=== PATIENT | female | born 1965 | race Two or more races ===

== ENCOUNTER 2024-10-24 17:33 | Emergency (ER) | payer MEDICAID, OTHER ==
[~2024-10-24] VITALS: Ht 154.9 cm; Wt 91.9 kg
--- NOTE | 2024-10-24 18:16 | ED.PDOC ---
History of Present Illness HPI Comments 59 y/o morbidly obese Polish speaking F presents with daughter for c/c left- sided rib pain. 1x day history of pain after having a corner of a freezer door injured her left-sided rib area. Denies any nausea, vomiting, shortness of breath, or further associated symptoms. Chief Complaint: Abdominal Pain Time Seen by MD: 17:50 Reviewed Notes: Nurses Notes, Medications, Allergies Allergies: Coded Allergies: NO KNOWN ALLERGIES (Unverified , 10/24/24) Home Meds Active Scripts Hydrocodone-Acetaminophen (Hydrocodone Bitartrate/AC 5-325 mg) 1 Tab Tab, 1 TAB PO Q6HP PRN, #12 TAB Prov:GAYE GALINDO PAC 10/24/24 Ibuprofen Micronized (Ibuprofen) 800 Mg Tab, 800 MG PO Q8HP PRN, #20 TAB Prov:GAYE GALINDO PAC 10/24/24 Information Source: Patient, Relative (Child) Mode of Arrival: Ambulatory Severity: Moderate Timing: Days Duration: Since onset Prehospital treatment: None Past Medical History PAST MEDICAL HISTORY: Denies Surgical History: Denies all surgeries MEDICAL SERVICES ASSISTANT History: No Pertinent MEDICAL SERVICES ASSISTANT History Social History Smoker: Non-Smoker Alcohol: Denies ETOH Use Drugs: Denies Drug Use Lives In: Home Constitutional: denies: chills, diaphoresis, fatigue, fever, malaise, sweats, weakness, others EENTM: denies: blurred vision, double vision, ear bleeding, ear discharge, ear drainage, ear pain, ear ringing, eye pain, eye redness, hearing loss, mouth pain, mouth swelling, nasal discharge, nose bleeding, nose congestion, nose pain, photophobia, tearing, throat pain, throat swelling, voice changes, others Respiratory: denies: cough, hemoptysis, orthopnea, SOB at rest, shortness of breath, SOB with excertion, stridor, wheezing, others Cardiovascular: denies: chest pain, dizzy spells, diaphoresis, Dyspnea on exertion, edema, irregular heart beat, left arm pain, lightheadedness, palpitations, PND, syncope, others Gastrointestinal: denies: abdomen distended, abdominal pain, blood streaked bowels, constipated, diarrhea, dysphagia, difficulty swallowing, hematemesis, melena, nausea, poor appetite, poor fluid intake, rectal bleeding, rectal pain, vomiting, others Genitourinary: denies: abnormal vagina bleeding, burning, dyspareunia, dysuria, flank pain, frequency, hematuria, incontinence, pain, , vagina discharge, urgency, others Neurological: denies: dizziness, fainting, headache, left sided numbness, left sided weakness, numbness, paresthesia, pre-existing deficit, right sided numbn ess, right sided weakness, seizure, speech problems, tingling, tremors, weakness, others Musculoskeletal: reports: others (Left-sided rib pain); denies: back pain, gout, joint pain, joint swelling, muscle pain, muscle stiffness, neck pain Integumetry: denies: bruises, change in color, change in hair/nails, dryness, laceration, lesions, lumps, rash, wounds, others Allergic/Immunocompromised: denies: Difficulty Healing, Frequent Infections, Hives, Itching, others Hematologic/Lymphatic: denies: anemia, blood clots, easy bleeding, easy bruising, swollen glands, others Endocrine: denies: excessive hunger, excessive sweating, excessive thirst, excessive urination, flushing, intolerance to cold, intolerance to heat, unexplained weight gain, unexplained weight loss, others Psychiatric: denies: anxiety, bipolar disorder, depression, hopeless, panic disorder, schizophrenia, sleepless, suicidal, others All Other Systems: Reviewed and Negative (as per HPI) Physical Exam General Appearance: Moderate Distress (Due to left-sided rib pain concerns), Obese HEENT: Normal ENT Inspection, Pharynx Normal, TMs Normal Neck: Full Range of Motion, Non-Tender, Normal, Normal Inspection Respiratory: Chest Non-Tender (No crepitus.), Lungs Clear, No Accessory Muscle Use, No Respiratory Distress, Normal Breath Sounds, Other (Left-sided rib tenderness to palpation at the mid axillary line between ribs five and seven. No edema or ecchymosis.) Cardiovascular: No Edema, No JVD, No Murmur, No Gallop, Normal Peripheral Pulses, Regular Rate/Rhythm Breast Exam: Deferred Gastrointestinal: No Organomegaly, Non Tender, No Pulsatile Mass, Normal Bowel Sounds, Soft Genitalia: Deferred Pelvic: Deferred Rectal: Deferred Extremities: No calf tenderness, Normal capillary refill, Normal inspection, Normal range of motion, Non-tender, No pedal edema Neurologic: Alert, No Motor Deficits, Normal Affect, Normal Mood, No Sensory Deficits Cerebellar Function: NOT DONE Reflexes: NOT DONE Skin: Dry, Normal Color, Warm Lymphatic: No Adenopathy Was a procedure done? Was a procedure done?: No Differential Dx Considerations may include: musculoskeletal pain, fracture, contusions, among others X-Ray, Labs, Meds, VS Vital Signs Date Time Temp Pulse Resp B/P (MAP) Pulse Ox O2 Delivery O2 Flow Rate FiO2 10/24/24 18:25 98.1 75 16 103/69 (80) 93 98.1 10/24/24 18:25 75 16 93 Room Air 10/24/24 17:41 97.8 77 20 113/73 95 97.8 Lab Test 10/24/24 18:00 Range/Units Urine Color Pending Urine Clarity Pending Urine pH Pending Urine Specific [place] Pending Urine Protein Pending Urine Ketones Pending Urine Blood Pending Urine Nitrite Pending Urine Bilirubin Pending Urine Urobilinogen Pending Urine Leukocyte Esterase Pending Urine Glucose Pending Current Medications Medications (Trade) Dose Ordered Sig/Santi Route Start Time Stop Time Status Last Admin Ketorolac Tromethamine (Toradol Injection) 30 mg ONCE ONCE IM 10/24/24 18:00 10/24/24 18:01 DC 10/24/24 18:19 Acetaminophen/ Hydrocodone Bitart ([place] 10/325MG Tab) 1 tab ONCE ONCE PO 10/24/24 18:00 10/24/24 18:01 DC 10/24/24 18:18 X-Ray, Labs, Meds, VS Comment Syncopal event while in the ED were evaluated by me personally. Imaging studies were unremarkable for any acute fractures. Patient sustained a rib contusion. Advised pain medication as needed as well as ice therapy as tolerated. Time of 1ST Reevaluation: 21:24 Reevaluation 1ST: Improved Consultation: PCP Patient Education/Counseling: Diagnosis, Treatment, Need For Follow Up Family Education/Counseling: Diagnosis, Treatment, Need For Follow Up SEPSIS Sepsis Screen Date sepsis recognized/suspect: Oct 24, 2024 Time Sepsis recognized/suspect: 1743 Recent Procedure: No On Antibiotic Therapy: No Respiratory Rate >20: No Heart Rate >90: No Temp<36 C (96.8 F) or >38.3 C: No SBP <90 or MAP <65 mmHG: No New Acute Mental Status Change: No Is the patient on CPAP, BIPAP,: No Physician Orders L Rib X Ray (10/24/24 17:59) Urinalysis W/Out Microscopic (10/24/24 18:00) Vital Signs Date Time Temp Pulse Resp B/P (MAP) Pulse Ox O2 Delivery O2 Flow Rate FiO2 10/24/24 18:25 98.1 75 16 103/69 (80) 93 98.1 10/24/24 18:25 75 16 93 Room Air 10/24/24 17:41 97.8 77 20 113/73 95 97.8 Medications Medications Dose Ordered Sig/Santi Route Start Time Stop Time Status Last Admin Dose Admin Acetaminophen/ Hydrocodone Bitart 1 tab ONCE ONCE PO 10/24/24 18:00 10/24/24 18:01 DC 10/24/24 18:18 Ketorolac Tromethamine 30 mg ONCE ONCE IM 10/24/24 18:00 10/24/24 18:01 DC 10/24/24 18:19 Departure 1 Departure Time of Disposition: 21:25 Impression: Primary Impression: Rib contusion Disposition: HOME / SELF CARE / HOMELESS Condition: Stable Additional Instructions: Advised patient utilize pain medication as needed for symptomatic relief and ice therapy as tolerated. e-Prescriptions Hydrocodone-Acetaminophen (Hydrocodone Bitartrate/AC 5-325 mg) 1 Tab Tab 1 TAB PO Q6HP PRN, #12 TAB Prov: GAYE GALINDO PAC 10/24/24 Ibuprofen Micronized (Ibuprofen) 800 Mg Tab 800 MG PO Q8HP PRN, #20 TAB Prov: GAYE GALINDO PAC 10/24/24 Discharged With: Self, Relative Critical Care Note Critical Care Time?: No Stability Stability form required: No Heart Score Heart Score: Heart Score Response (Comments) Value History N/A 0 EKG N/A 0 Age N/A 0 Risk Factors N/A 0 Troponin N/A 0 Total 0 I personally scribed for GAYE GALINDO PAC ([email or web address]) on 10/24/24 at 18:16. Electronically submitted by Martin Allen ([email or web address]). I personally scribed for GAYE GALINDO PAC ([email or web address]) on 10/24/24 at 18:21. Electronically submitted by Martin Allen ([email or web address]). GAYE GALINDO PAC Oct 24, 2024 18:16
[2024-10-24] MEDS: HYDROcodone-ACET 10/325MG TAB PO ONE (18:18)
[2024-10-24] MEDS: KETOROLAC TROMETH 60MG/2ML VIAL IM ONE (18:19)
[2024-10-24 18:25] VITALS: BP 103/69; PULSE 75; RESP 16; TEMP 98.1; O2SAT 93
[2024-10-24] MEDS ORDERED: IBUP-1455 PO (21:26)
[2024-10-24] MEDS ORDERED: HYDR-4902 PO (21:26)
[2024-10-24 21:46] LABS: Urine Protein, UAD Negative (Negative)
--- NOTE | 2024-10-25 08:43 | DVH ---
CLINICAL HISTORY: Trauma. TECHNIQUE: AP view of the chest and AP and oblique views of the left ribs were obtained. COMPARISON: None FINDINGS: Lungs are clear. No focal consolidation, pneumothorax, or pleural effusion. Cardiac and m ediastinal contours are within normal limits in size. Pulmonary vasculature is normal. No acute frac ture identified in the left ribs. IMPRESSION: 1. No evidence of acute disease in the chest. 2. No acute fracture identified in the left ribs.
== END 2024-10-24 22:59 | disposition home or self-care (01) ==
LOC: ER 17:45
DX: S20.212A Contusion of left front wall of thorax, initial encounter (principal); X58.XXXA Exposure to other specified factors, initial encounter; Y93.89 Activity, other specified; Y92.89 Other specified places as the place of occurrence of the external cause; Y99.8 Other external cause status
CPT/HCPCS: 71101; 81003; 96372; 99284; J1885